=== PATIENT | male | born 1955 | race Caucasian/White ===

== ENCOUNTER 2022-04-23 12:19 | Outpatient (CLI) | payer MEDICARE | END 2022-04-23 12:20 | disposition home or self-care (01) | LOC: TBSIIMAG 12:19 | PROVIDERS: ATTEND Neurological Surgery | DX: M47.26 Other spondylosis with radiculopathy, lumbar region (principal); M48.061 Spinal stenosis, lumbar region without neurogenic claudication; Q76.49 Other congenital malformations of spine, not associated with scoliosis; M47.815 Spondylosis without myelopathy or radiculopathy, thoracolumbar region; M24.28 Disorder of ligament, vertebrae; M51.16 Intervertebral disc disorders with radiculopathy, lumbar region; M51.37 Other intervertebral disc degeneration, lumbosacral region; M47.817 Spondylosis without myelopathy or radiculopathy, lumbosacral region; M48.07 Spinal stenosis, lumbosacral region; R93.421 Abnormal radiologic findings on diagnostic imaging of right kidney | CPT/HCPCS: 72148 ==